=== PATIENT | male | born 1990 | race Caucasian/White ===

== ENCOUNTER 2021-09-23 17:43 | Emergency (ER) | payer OTHER ==
--- OUTSIDE RECORDS SUMMARY | 2021-09-23 17:48 | XMS REPORT | Continuity of Care Document ---
:1990 Author Organization Formerly [facility] t Address [address] [place] [address] Care Team Providers Name Role Phone UNKNOWN Primary Care Physician Unavailable COLLEEN Attending Clinician Unavailable Effie OCHOA Attending Clinician Unavailable Lyle DILLON Attending Clinician Unavailable COLLEEN Admitting Clinician Unavailable Effie OCHOA Admitting Clinician Unavailable Lyle DILLON Admitting Clinician Unavailable Problems This patient has no known problems. Allergies, Adverse Reactions, Alerts This patient has no known allergies or adverse reactions. Medications This patient has no known medications. Procedures This patient has no known procedures. Encounters Start End Encounter Admission Attending Care Care Encounter Source Date/Time Date/Time Type Type Clinicians Facility Department ID 2018-03-08 2018-03-08 Emergency [facility] [id number] [address] [place] 11:08:25 11:08:25 Health Results Test Description Test Time Test Comments Results Result Comments Source Valproic Acid (Depakote),S 2017-05-06 08:55:00 Test Item Value Reference Range Interpretation Comme nts Valproic Acid (test code = VALP) 89.2 ug/mL 50.0-100.0 N Valproic Acid (Depakote),[id number] 09:48:00 Test Item Value Reference Range Interpretation Comments Valproic Acid (test code = VALP) 41.9 ug/mL 50.0-100.0 L RPR, [id number] 13:48:00 Test Item Value Reference Range Interpretation Comments RPR (test code = RPR) Non-Reactive Non-Reactive N Thyroid Stimulating Hormone (TSH)2017-04-21 07:08:00 Test Item Value Reference Range Interpretation Comments TSH (test code = TSH) 0.94 mIU/mL 0.270-4.200 N Lipid [id number] 06:59:00 Test Item Value Reference Range Interpretation Comments Cholesterol (test 158 mg/dL 0-200 N code = CHOL) Triglycerides (test 120 mg/dL 9-200 N code = TRIG) HDL (test code = 35 mg/dL 40-60 L HDL) Chol/HDL (test code 4.5 Ratio 0.0-5.0 N = CHOLPHDL) LDL, Calculated 99 0-130 N (NOTE)RISK O F HEART (test code = LDLC) DISEASEPu blished by [place] Heart AssociationAnal yte Optim al Boderline Increased RiskC HOL <200 200-239 >240TRI G <150 150-199 >200HDL Male: >60 <40HDL Female: >60 <50 LDL < 100 130-15 9 >160 LDL NEAR OPTIMAL IS 100- 129 VLDL (test code = 24 mg/dL 5-40 N VLDL) LDL/HDL (test code = 3 LDLPHDL) RPR, [id number] 10:59:00 Test Item Value Reference Range Interpretation Comments RPR (test code = RPR) Non-Reactive Non-Reactive N Thyroid Stimulating Hormone (TSH)2017-04-05 09:10:00 Test Item Value Reference Range Interpretation Comments TSH (test code = TSH) 1.49 mIU/mL 0.270-4.200 N Lipid [id number] 09:02:00 Test Item Value Reference Range Interpretation Comments Cholesterol (test 205 mg/dL 0-200 H code = CHOL) Triglycerides (test 266 mg/dL 9-200 H code = TRIG) HDL (test code = 50 mg/dL 40-60 N HDL) Chol/HDL (test code 4.1 Ratio 0.0-5.0 N = CHOLPHDL) LDL, Calculated 102 0-130 N (NOTE)RISK O F HEART (test code = LDLC) DISEASEPu blished by [place] Heart AssociationAnal yte Optim al Boderline Increased RiskC HOL <200 200-239 >240TRI G <150 150-199 >200HDL Male: >60 <40HDL Female: >60 <50 LDL < 100 130-15 9 >160 LDL NEAR OPTIMAL IS 100- 129 VLDL (test code = 53 mg/dL 5-40 H VLDL) LDL/HDL (test code = 2 LDLPHDL) Comprehensive Metabolic [id number] 05:17:00 Test Item Value Reference Range Interpretation Comments Sodium (test code = 141 mmol/L 135-145 N NA) Potassium (test 3.6 mmol/L 3.5-5.1 N code = K) Chloride (test code 103 mmol/L 98-105 N = CL) Carbon Dioxide 29 mmol/L 22-29 N (test code = CO2) Glucose (test code 120 mg/dL 70-115 H = GLU) Blood Urea Nitrogen 14 mg/dL 6-20 N (test code = BUN) Creatinine (test 1.3 mg/dL 0.7-1.2 H code = CREAT) Calcium (test code 8.9 mg/dL 8.3-10.5 N = CA) Prot Total (test 6.1 g/dL 6.4-8.3 L code = TP) Albumin (test code 4.1 g/dL 3.5-5.2 N = ALB) A/G Ratio (test 2.1 Ratio code = AGRATIO) Globulin (test code 2.0 2.9-3.1 L = GLOB) Bili Total (test 0.2 mg/dL 0.1-0.9 N code = TBIL) Alk Phos (test code 79 U/L 40-129 N = APHOS) AST (test code = 29 U/L 1-40 N AST) ALT (test code = 46 U/L 1-41 H ALT) BUN/Creatinine 10.8 Ratio (test code = BCRATIO) Anion Gap (test 9 mmol/L 7-16 N code = AGAP) Estimated GFR (test >60 eGFR (es timated code = GFR) mL/min/1.73m2 Glomerular Uvaldo tration Rate) is an est imated value,calculate d from the patient's s dixon creatinine usin g the MDRD equation.I t is NOT the patient 's actual GFR. The eGFR provides a more clinicallyusefu l measure of kidn ey disease than se rum creatinine alone.This calculation philomena es sex and race into account, if the informationis provided. If th e race is not provided , and the patient isAfrican-Ameri can, multiply by 1.2 12. If sex is not prov ided, and thepatient is female, multipl y by 0.742. Results for patients <18 ye ars ofage have not been validated by th e MDRD study and concepción mnuoz be interpretedwith caution.eGFR Re sult Interpretation: eGFR > or = 60 is in t he Normal RangeeGF R < 60 may mean kidney diseaseeGFR < 1 5 may mean kidney failureRange s recommended by the National Kidney Foundation,http ://nkd ep.nih.gov [id number] 05:14:00 Test Item Value Reference Range Interpretation Comments Amphetamine (test POSITIVE Negative A For diagno stic code = AMPH) purposes only, positive result s should always b e assessedin conjunctionwith the patient's medic al history,clinica l examination and otherfindings.T o fulfill legal requirements, a more specific altern ate chemical method must be used inorder to obtain a Confirmed rasheeda lytical result. GC/MS i s the preferred confi rmatory method. Barbiturates (test Negative Negative N code = ISRA) Benzodiazepine (test Negative Negative N code = BELEN) Cocaine (test code = Negative Negative N COCA) Methadone (test code Negative Negative N = MTHD) Opiates (test code = Negative Negative N OPIA) PCP (test code = PCP) Negative Negative N Propoxyphene (test Negative Negative N code = PROPOX) THC (test code = THC) POSITIVE Negative A Alcohol, Urine (test <0.01 g/dL 0.00-0.01 N code = ETOHU) Urinalysis [id number] 05:06:00 Test Item Value Reference Range Interpretation Comments Color (test code = COLOR) Yellow Yellow,Straw,Pl N yellow Clarity (test code = Clear Clear N CLAR) Specific [place] (test 1.027 1.001-1.035 N code = SPGR) pH (test code = PH) 6.0 5.0-9.0 N Ketone (test code = KET) Negative mg/dL Negative N Glucose (test code = Negative mg/dL Negative N GLUCUR) Protein (test code = Negative mg/dL Negative N PROT) Bilirubin (test code = Negative mg/dL Negative N BILI) Occult Blood (test code = Negative Negative N UDOB) Urobilinogen (test code = 0.2 mg/dL 0.2-1.0 N UROB) Nitrite (test code = NIT) Negative Negative N Leuk Esterase (test code Negative Negative N = LEUK) Micros Exam (test code = Not indicated MEXAM) CBC with [id number] 05:05:00 Test Item Value Reference Range Interpretation Comments WBC (test code = WBC) 7.7 K/cumm 4.4-10.5 N RBC (test code = RBC) 4.79 M/cumm 4.10-5.70 N Hemoglobin (test code = HGB) 14.2 gm/dL 13.4-17.4 N Hematocrit (test code = HCT) 43.4 % 38.7-52.0 N MCV (test code = MCV) 90.6 fL 80-100 N MCH (test code = MCH) 29.6 pg 27.0-32.5 N MCHC (test code = MCHC) 32.6 g/dL 32.0-37.5 N RDW (test code = RDW) 13.7 % 11.5-14.5 N Platelet Count (test code = 325 K/cumm 140-440 N PLTCT) MPV (test code = MPV) 7.9 fL Diff Method (test code = DIFFM) Auto Neutrophil (test code = NEUT) 44.4 % 36-70 N Lymphocyte (test code = LYMPH) 42.4 % 12-44 N Monocyte (test code = MONO) 8.5 % 0-11 N Eosinophil (test code = EOS) 3.1 % 0-7 N Basophil (test code = BASO) 1.6 % 0-2 N Neutro Abs (test code = ANEUT) 3.4 K/cumm 1.6-7.4 N Lymph Abs (test code = ALYMPH) 3.3 K/cumm 0.5-4.6 N [place] Abs (test code = AMONO) 0.7 K/cumm 0.0-1.2 N Eos Abs (test code = AEOS) 0.23 K/cumm 0.00-0.74 N Baso Abs (test code = ABASO) 0.1 K/cumm 0.00-0.21 N [id number] 14:10:00 Test Item Value Reference Range Interpretation Comments Amphetamine (test code POSITIVE Negative A For d iagnostic purposes = AMPH) only, positive results should always b e assessedin conjunctionwith the patient's medic al history,clinica l examination and otherfindings.T o fulfill legal requirements, a more specific altern ate chemical method must be used inorder to obtain a Confirmed rasheeda lytical result. GC/MS i s the preferred confi rmatory method. Barbiturates (test Negative Negative N code = ISRA) Benzodiazepine (test Negative Negative N code = BELEN) Cocaine (test code = Negative Negative N COCA) Methadone (test code = Negative Negative N MTHD) Opiates (test code = Negative Negative N OPIA) PCP (test code = PCP) Negative Negative N Propoxyphene (test Negative Negative N code = PROPOX) THC (test code = THC) POSITIVE Negative A Alcohol/Ethanol, [id number] 13:57:00 Test Item Value Reference Range Interpretation Comments Alcohol, Ethyl <0.01 g/dL 0.00-0.01 N Intoxicated 0.080 (test code = ETOH) g/dL or m ore [id number] 13:57:00 Test Item Value Reference Range Interpretation Comments Salicylate (test code <0.3 mg/dL 0.3-10.0 L Cheryl nge in unit of = SALI) measurement for Salicylate ( fr om ug/mL to mg/dL ) [id number] 13:57:00 Test Item Value Reference Range Interpretation Comments Acetaminophen (test code = ACET) <15.0 ug/mL 15.0-30.0 L Comprehensive Metabolic [id number] 13:57:00 Test Item Value Reference Range Interpretation Comments Sodium (test code = 141 mmol/L 135-145 N NA) Potassium (test 3.3 mmol/L 3.5-5.1 L code = K) Chloride (test code 99 mmol/L 98-105 N = CL) Carbon Dioxide 28 mmol/L 22-29 N (test code = CO2) Glucose (test code 92 mg/dL 70-115 N = GLU) Blood Urea Nitrogen 14 mg/dL 6-20 N (test code = BUN) Creatinine (test 1.1 mg/dL 0.7-1.2 N code = CREAT) Calcium (test code 9.4 mg/dL 8.3-10.5 N = CA) Prot Total (test 7.2 g/dL 6.4-8.3 N code = TP) Albumin (test code 4.4 g/dL 3.5-5.2 N = ALB) A/G Ratio (test 1.6 Ratio code = AGRATIO) Globulin (test code 2.8 2.9-3.1 L = GLOB) Bili Total (test 0.2 mg/dL 0.1-0.9 N code = TBIL) Alk Phos (test code 86 U/L 40-129 N = APHOS) AST (test code = 29 U/L 1-40 N AST) ALT (test code = 45 U/L 1-41 H ALT) BUN/Creatinine 12.7 Ratio (test code = BCRATIO) Anion Gap (test 14 mmol/L 7-16 N code = AGAP) Estimated GFR (test >60 eGFR (es timated code = GFR) mL/min/1.73m2 Glomerular Uvaldo tration Rate) is an est imated value,calculate d from the patient's s dixon creatinine usin g the MDRD equation.I t is NOT the patient 's actual GFR. The eGFR provides a more clinicallyusefu l measure of kidn ey disease than se rum creatinine alone.This calculation philomena es sex and race into account, if the informationis provided. If th e race is not provided , and the patient isAfrican-Ameri can, multiply by 1.2 12. If sex is not prov ided, and thepatient is female, multipl y by 0.742. Results for patients <18 ye ars ofage have not been validated by th e MDRD study and shoul d be interpretedwith caution.eGFR Re sult Interpretation: eGFR > or = 60 is in t he Normal RangeeGF R < 60 may mean kidney diseaseeGFR < 1 5 may mean kidney failureRange s recommended by the National Kidney Foundation,http ://nkd ep.nih.gov CBC with [id number] 13:54:00 Test Item Value Reference Range Interpretation Comments WBC (test code = WBC) 9.5 K/cumm 4.4-10.5 N RBC (test code = RBC) 5.14 M/cumm 4.10-5.70 N Hemoglobin (test code = HGB) 15.3 gm/dL 13.4-17.4 N Hematocrit (test code = HCT) 46.3 % 38.7-52.0 N MCV (test code = MCV) 90.0 fL 80-100 N MCH (test code = MCH) 29.7 pg 27.0-32.5 N MCHC (test code = MCHC) 33.0 g/dL 32.0-37.5 N RDW (test code = RDW) 13.2 % 11.5-14.5 N Platelet Count (test code = 366 K/cumm 140-440 N PLTCT) MPV (test code = MPV) 7.3 fL Diff Method (test code = DIFFM) Auto Neutrophil (test code = NEUT) 69.1 % 36-70 N Lymphocyte (test code = LYMPH) 21.6 % 12-44 N Monocyte (test code = MONO) 7.3 % 0-11 N Eosinophil (test code = EOS) 1.0 % 0-7 N Basophil (test code = BASO) 1.0 % 0-2 N Neutro Abs (test code = ANEUT) 6.6 K/cumm 1.6-7.4 N Lymph Abs (test code = ALYMPH) 2.1 K/cumm 0.5-4.6 N [place] Abs (test code = AMONO) 0.7 K/cumm 0.0-1.2 N Eos Abs (test code = AEOS) 0.09 K/cumm 0.00-0.74 N Baso Abs (test code = ABASO) 0.1 K/cumm 0.00-0.21 N
--- NOTE | 2021-09-23 18:49 | ER ---
Nurse's Notes [facility] Name: Don Berg Jr Age: 31 yrs Sex: Male : 1990 Arrival Date: 09/23/2021 Time: 17:47 Bed 11 Private MD: Diagnosis: Gastroenteritis;Diverticulosis Presentation: 09/23 19:37 Chief complaint: Patient states: "I want a colon screening" he has diarrhea approx 20 bb times a day for the last 7 to 8 years with abdominal pain. Coronavirus screen: At this time, the client does not indicate any symptoms associated with coronavirus-19. Ebola Screen: No symptoms or risks identified at this time. Initial Sepsis Screen: Does the patient meet any 2 criteria? No. Patient's initial sepsis screen is negative. Does the patient have a suspected source of infection? No. Patient's initial sepsis screen is negative. Risk Assessment: Do you want to hurt yourself or someone else? Patient reports no desire to harm self or others. Onset of symptoms is unknown. 19:37 Method Of Arrival: Ambulatory bb 19:37 Acuity: TAMIKO 3 bb Triage Assessment: 19:39 General: Appears in no apparent distress. Behavior is calm, cooperative. Pain: bb Complains of pain in abdomen. Neuro: Level of Consciousness is awake, alert, obeys commands, Oriented to person, place, time, situation. Cardiovascular: Capillary refill < 3 seconds Patient's skin is warm and dry. Respiratory: Respiratory effort is even, unlabored, Respiratory pattern is regular. GI: Abdomen is round Reports lower abdominal pain, diarrhea. Derm: Skin is pink, warm \\T\\ dry. Musculoskeletal: Circulation, motion, and sensation intact. 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 - Social history:: Smoking status: Patient reports the use of cigarette tobacco products, Patient uses alcohol, occasionally. Patient/guardian denies using street drugs. Screenin:30 Abuse screen: Denies threats or abuse. Nutritional screening: No deficits noted. bb Tuberculosis screening: No symptoms or risk factors identified. Fall Risk None identified. Assessment: 21:30 Reassessment: No changes from previously documented assessment. Patient is alert, bb oriented x 3, equal unlabored respirations, skin warm/dry/pink. see triage asssessment. 22:05 Reassessment: Patient is alert, oriented x 3, equal unlabored respirations, skin bb warm/dry/pink. pt to CT scan via wheelchair accompanied by legal technician. 09/24 00:04 Reassessment: Patient is alert, oriented x 3, equal unlabored respirations, skin bb warm/dry/pink. pt verbalized understanding of and agrees to plan of care discharge instructions given pt ambulated with steady gait to exit Patient states feeling better. Vital Signs: 09/23 19:37 BP 136 / 97; Pulse 101; Resp 16 S; Temp 98.5(O); Pulse Ox 98% on R/A; Weight 52.16 kg bb (R); Height 4 ft. 11 in. (149.86 cm) (R); Pain 7/10; 09/24 00:04 BP 139 / 99; Pulse 83; Resp 16 S; Temp 97.6(O); Pulse Ox 98% on R/A; bb 09/23 19:37 Body Mass Index 23.23 (52.16 kg, 149.86 cm) ED Course: 09/23 17:47 Patient arrived in ED. ds1 19:39 Triage completed. bb 19:39 Arm band placed on Patient placed in an exam room, on a stretcher, on pulse oximetry. 19:57 Initial lab(s) drawn, by ia, sent to lab. Inserted saline lock: 22 gauge in right lt3 antecubital area, using aseptic technique. 19:57 Hepatic Function Sent. lt3 19:57 CBC with Diff Sent. lt3 19:57 Basic Metabolic Panel Sent. lt3 19:57 Lipase Sent. 3 21:19 Gus Villegas MD is Attending Physician. [facility] 21:30 Patient has correct armband on for positive identification. Call light in reach. bb 22:19 CT Abd/Pelvis - IV Contrast Only In Process Unspecified. EDCO 23:45 Daljit Thompson MD is Referral Physician. [facility] 23:56 Angelina Vines, RN is Primary Nurse. bb 09/24 00:05 No provider procedures requiring assistance completed. IV discontinued, intact, bb bleeding controlled, No redness/swelling at site. Pressure dressing applied. Administered Medications: 09/23 22:05 Drug: NS 0.9% 1000 ml Route: IV; Rate: 1000 ml; Site: right antecubital; bb 09/24 00:05 Follow up: IV Status: Completed infusion; IV Intake: 1000ml bb 09/23 22:05 Drug: Zofran (Ondansetron) 4 mg Route: IVP; Site: right antecubital; bb 09/24 00:06 Follow up: Response: No adverse reaction bb 09/23 22:07 Drug: morphine 4 mg {Note: RASS 0.} Route: IVP; Site: right antecubital; bb 09/24 00:06 Follow up: Response: No adverse reaction; Pain is decreased; RASS: Alert and Calm (0) bb 09/23 23:58 Drug: Cipro (ciprofloxacin) 500 mg Route: PO; bb 09/24 00:06 Follow up: Response: Medication administered at discharge. bb Intake: 00:05 IV: 1000ml; Total: 1000ml. bb Outcome: 09/23 18:49 Patient left the ED. 23:46 Discharge ordered by . va 09/24 00:05 Discharged to home ambulatory. bb Condition: stable Discharge instructions given to patient, Instructed on discharge instructions, follow up and referral plans. medication usage, Demonstrated understanding of instructions, follow-up care, medications, Prescriptions given X 4. 00:06 Patient left the ED. bb Signatures: Dispatcher [facility] Shruti Bojorquez ds1 Angelina Vines RN RN bb Williams, Irene, RN RN iw Holmes, Maurice, MD MD 7 Brenna Mary 3 Corrections: (The following items were deleted from the chart) 09/23 22:18 22:18 NS 0.9% 1000 ml IV at 1000 ml in right antecubital kris ponce
[2021-09-23 20:22] LABS: Absolute Lymphocytes (CBC) 2.8 K/uL (0.7-4.9); Hematocrit 45.2 % (39.6-49.0); MPV 7.9 fL (7.6-11.3); RBC Red Blood Cell Count 4.82 M/uL (4.33-5.43)
[2021-09-23 20:39] LABS: ALT/SGPT 57 U/L (12-78); AST/SGOT 19 U/L (15-37); Albumin 3.8 g/dL (3.4-5.0); Alkaline Phosphatase 95 U/L (45-117); BUN Blood Urea Nitrogen 21 mg/dL (7-18); Bicarbonate 25 mmol/L (21-32); Bilirubin Direct < 0.1 mg/dL (0-0.2); Bilirubin Total 0.2 mg/dL (0.2-1.0); Glucose Level 111 mg/dL (74-106); Lipase 95 U/L (73-393); Potassium 4.1 mmol/L (3.5-5.1); Protein, Total 7.7 g/dL (6.4-8.2); Sodium Level 137 mmol/L (136-145)
[2021-09-23] MEDS ORDERED: ONDANSETRON 4 MG/2 ML VIAL ONE (21:59)
[2021-09-23] MEDS ORDERED: MORPHINE 4 MG/ML SYR ONE (21:59)
[2021-09-23] MEDS ORDERED: NA CHLORIDE 0.9% 1,000 ML ONE (21:59)
[2021-09-23 22:09] LABS: Urine Blood Negative (Negative); Urine Glucose Negative (Negative); Urine Protein 1+ (Negative); Urine Specific Gravity 1.025 (1.005-1.030); Urine pH 5.5 (5.0-7.0)
--- NOTE | 2021-09-23 23:46 | EDPHYS ---
Physician Documentation [facility] Name: Don Berg Jr Age: 31 yrs Sex: Male : 1990 Arrival Date: 09/23/2021 Time: 17:47 Bed 11 Private MD: ED Physician Gus Villegas HPI: 09/23 21:41 This 31 yrs old Male presents to ER via Ambulatory with complaints of Abdominal Pain. mh7 21:41 The patient presents with abdominal pain in the lower abdomen. Onset: The mh7 symptoms/episode began/occurred 2 week(s) ago. The symptoms do not radiate. Associated signs and symptoms: Pertinent positives: diarrhea, nausea, Pertinent negatives: anorexia, blood in stools, chest pain, constipation, dysuria, fever, headache, hematuria, palpitations, shortness of breath, testicular pain, vomiting, vomiting blood. The symptoms are described as intermittent, vague, waxing/waning. Modifying factors: The symptoms are alleviated by nothing, the symptoms are aggravated by nothing. Severity of pain: At its worst the pain was moderate 4 day(s) ago, in the emergency department the pain has improved moderately. 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 - Social history:: Smoking status: Patient reports the use of cigarette tobacco products, Patient uses alcohol, occasionally. Patient/guardian denies using street drugs. ROS: 21:41 Constitutional: Negative for fever, chills, and weight loss, Eyes: Negative for injury, mh7 pain, redness, and discharge, ENT: Negative for injury, pain, and discharge, Neck: Negative for injury, pain, and swelling, Cardiovascular: Negative for chest pain, palpitations, and edema, Respiratory: Negative for shortness of breath, cough, wheezing, and pleuritic chest pain, Back: Negative for injury and pain, : Negative for injury, bleeding, discharge, and swelling, MS/Extremity: Negative for injury and deformity, Skin: Negative for injury, rash, and discoloration, Neuro: Negative for headache, weakness, numbness, tingling, and seizure, Psych: Negative for depression, anxiety, suicide ideation, homicidal ideation, and hallucinations, Allergy/Immunology: Negative for hives, rash, and allergies, Endocrine: Negative for neck swelling, polydipsia, polyuria, polyphagia, and marked weight changes, Hematologic/Lymphatic: Negative for swollen nodes, abnormal bleeding, and unusual bruising. Exam: 21:41 Constitutional: The patient appears in no acute distress, alert, awake, uncomfortable. mh7 21:41 Head/Face: Normocephalic, atraumatic. Eyes: Pupils equal round and reactive to light, mh7 extra-ocular motions intact. Lids and lashes normal. Conjunctiva and sclera are non-icteric and not injected. Cornea within normal limits. Periorbital areas with no swelling, redness, or edema. Neck: Trachea midline, no thyromegaly or masses palpated, and no cervical lymphadenopathy. Supple, full range of motion without nuchal rigidity, or vertebral point tenderness. No Meningismus. Chest/axilla: Normal chest wall appearance and motion. Nontender with no deformity. No lesions are appreciated. Cardiovascular: Regular rate and rhythm with a normal S1 and S2. No gallops, murmurs, or rubs. Normal PMI, no JVD. No pulse deficits. Respiratory: Lungs have equal breath sounds bilaterally, clear to auscultation and percussion. No rales, rhonchi or wheezes noted. No increased work of breathing, no retractions or nasal flaring. 21:41 Back: No spinal tenderness. No costovertebral tenderness. Full range of motion. Skin: Warm, dry with normal turgor. Normal color with no rashes, no lesions, and no evidence of cellulitis. MS/ Extremity: Pulses equal, no cyanosis. Neurovascular intact. Full, normal range of motion. Neuro: Awake and alert, GCS 15, oriented to person, place, time, and situation. Cranial nerves II-XII grossly intact. Motor strength 5/5 in all extremities. Sensory grossly intact. Cerebellar exam normal. Normal gait. Psych: Awake, alert, with orientation to person, place and time. Behavior, mood, and affect are within normal limits. 21:41 Abdomen/GI: Inspection: abdomen appears normal, Bowel sounds: normal, in all quadrants, Palpation: moderate abdominal tenderness, in the left lower quadrant, mass, is not appreciated, rebound tenderness, is not appreciated, voluntary guarding, is not appreciated, involuntary guarding, is not appreciated, no appreciated organomegaly, Rectal exam: the exam is deferred, because of patient request, Indicators: McBurney's point is not tender, Dyson's sign is negative, Rovsing's sign is negative, Obturator sign is negative, Psoas sign is negative, Liver: no appreciated palpable abnormalities, Hernia: not appreciated. Vital Signs: 19:37 BP 136 / 97; Pulse 101; Resp 16 S; Temp 98.5(O); Pulse Ox 98% on R/A; Weight 52.16 kg bb (R); Height 4 ft. 11 in. (149.86 cm) (R); Pain 04/01; 09/24 00:04 BP 139 / 99; Pulse 83; Resp 16 S; Temp 97.6(O); Pulse Ox 98% on R/A; bb 09/23 19:37 Body Mass Index 23.23 (52.16 kg, 149.86 cm) MDM: 09/23 23:43 Differential diagnosis: bowel obstruction, diverticulitis, gastritis, gastroesophageal mh7 reflux disease, Irritable bowel syndrome, non-specific abd pain, Peptic Ulcer Disease, Pyelonephritis, Ureterolithiasis, urinary tract infection. Data reviewed: vital signs, nurses notes, old medical records, lab test result(s), CBC, electrolytes, urinalysis, radiologic studies, CT scan. Data interpreted: Pulse oximetry: on room air is 98 %. Interpretation: normal. Counseling: I had a detailed discussion with the patient and/or guardian regarding: the historical points, exam findings, and any diagnostic results supporting the discharge/admit diagnosis, the presence of at least one elevated blood pressure reading (>120/80) during this emergency department visit, lab results, radiology results, the need for outpatient follow up, a machine lacer, to return to the emergency department if symptoms worsen or persist or if there are any questions or concerns that arise at home. Response to treatment: the patient's symptoms have resolved after treatment, the patient's blood pressure is in an acceptable range, mental status has returned to baseline, the patient no longer shows bradycardia, the patient is not short of breath, the patient is not tachycardic, the patient's pain is gone, the patient's temperature has normalized, patient is well hydrated. 23:46 Patient medically screened. [facility] 09/23 19:41 Order name: Basic Metabolic Panel 09/23 19:41 Order name: CBC with Diff 09/23 19:41 Order name: Hepatic Function 09/23 19:41 Order name: Lipase; Complete Time: 21:27 09/23 19:41 Order name: Basic Metabolic Panel; Complete Time: 21:27 EDAK 09/23 19:41 Order name: CBC with Automated Diff; Complete Time: 21:27 EDAK 09/23 19:41 Order name: IV Saline Lock; Complete Time: 19:57 09/23 19:41 Order name: Liver (Hepatic) Function; Complete Time: 21:27 EDAK 09/23 21:28 Order name: CT Abd/Pelvis - IV Contrast Only [facility] 09/23 22:08 Order name: Urine Dipstick-Ancillary; Complete Time: 23:28 [facility] 09/23 19:41 Order name: Labs collected and sent; Complete Time: 19:57 09/23 21:28 Order name: Urine Dipstick-Ancillary (obtain specimen); Complete Time: 22:09 [facility] Administered Medications: 22:05 Drug: NS 0.9% 1000 ml Route: IV; Rate: 1000 ml; Site: right antecubital; 09/24 00:05 Follow up: IV Status: Completed infusion; IV Intake: 1000ml 09/23 22:05 Drug: Zofran (Ondansetron) 4 mg Route: IVP; Site: right antecubital; 09/24 00:06 Follow up: Response: No adverse reaction 09/23 22:07 Drug: morphine 4 mg {Note: RASS 0.} Route: IVP; Site: right antecubital; 09/24 00:06 Follow up: Response: No adverse reaction; Pain is decreased; RASS: Alert and Calm (0) 09/23 23:58 Drug: Cipro (ciprofloxacin) 500 mg Route: PO; 09/24 00:06 Follow up: Response: Medication administered at discharge. Disposition Summary: 09/23/21 23:46 Discharge Ordered Location: Home [facility] Problem: an ongoing problem [facility] Symptoms: have improved [facility] Condition: Stable [facility] Diagnosis - Gastroenteritis [facility] - Diverticulosis [facility] Followup: [facility] - With: Private Physician - When: 1 - 2 days - Reason: Worsening of condition, Recheck today's complaints, Continuance of care, Re-evaluation by your physician Followup: [facility] - With: Daljit Thompson MD - When: 2 - 3 days - Reason: Worsening of condition, Recheck today's complaints Discharge Instructions: - Discharge Summary Sheet [facility] - High-Fiber Diet [facility] - Diverticulosis [facility] - Viral Gastroenteritis, Adult, Zitm-ir-Hucs [facility] Forms: - Medication Reconciliation Form [facility] - Thank You Letter [facility] - Antibiotic Education [facility] - Prescription Opioid Use [facility] Prescriptions: - ondansetron 4 mg Oral tablet,disintegrating - place 1 tablet by TRANSLINGUAL route every 8 hours As needed; 10 tablet; [facility] Refills: 0, Product Selection Permitted - Flagyl 500 mg Oral Tablet - take 1 tablet by ORAL route every 8 hours for 10 days; 30 tablet; Refills: 0, [facility] Product Selection Permitted - Cipro 500 mg Oral Tablet - take 1 tablet by ORAL route every 12 hours for 10 days; 20 tablet; Refills: 0, [facility] Product Selection Permitted - dicyclomine 20 mg Oral Tablet - take 1 tablet by ORAL route 4 times per day As needed; 20 tablet; Refills: 0, [facility] Product Selection Permitted Signatures: Dispatcher [employer] Angelina Lozano RN RN Cailin Pickard RN RN iw Holmes, Maurice, MD MD [facility] Corrections: (The following items were deleted from the chart) 09/23 18:54 18:49 Before Triage [facility] 18:54 18:49 wait time [facility]
[2021-09-24] MEDS ORDERED: CIPROFLOXACIN HCL 500 MG TAB ONE (00:01)
[2021-09-24 00:20] VITALS: O2SAT 98
[2021-09-24 00:21] VITALS: BP 139/99; TEMP 97.6
--- NOTE | 2021-09-24 20:03 | RAD REPORT ---
EXAM DESCRIPTION: CT - Abdomen Pelvis W Contrast - 09/24/2021 7:01 am CLINICAL HISTORY: 31-year-old male with diarrhea and abdominal pain. COMPARISON: None. TECHNIQUE: CT of the abdomen and pelvis was performed following intravenous administration of contra st. Oral contrast was not administered. Multiplanar reformatted images were provided. This exam was p erformed according to our departmental dose optimization program which includes use of automated expo sure control, adjustment of the mA and/or kV according to patient size and/or use of iterative recons truction technique. FINDINGS: Chest: Evaluation through the lung bases reveals no focal opacity, pleural effusion or pne umothorax. Heart size is within normal limits. No pericardial effusion. Abdomen and pelvis: The liver, gallbladder, pancreas, spleen, bilateral kidneys and bilateral adrenal glands are within normal limits. The vessels are patent and normal in caliber. Retroaortic LEFT renal vein. No abdominopelvic lymph nodes are noted to be pathologically enlarged by CT measurement criteria. The large bowel is situated within the LEFT hemiabdomen with the cecum and appendix crossing midline, terminating at the level of the RIGHT lower quadrant. The small bowel is situated within the RIGHT h emiabdomen. The duodenum does not cross the midline, and the SMA SMV are reversed compatible with mal rotation. There is diffuse bowel wall thickening of the duodenum and proximal small bowel and fluid-filled dist ention of distal small bowel without clear findings to suggest obstructive process. Unformed stool present throughout the large and small bowel compatible with liquid fecal content/diar karina, raising the question of enteritis. There is diffuse fatty infiltration of the submucosa throughout the colon raising the possibility of sequela of inflammatory bowel disease. Diverticular disease without findings to suggest diverticulitis. Thickened appearance of the bladder wall may be secondary to incomplete distention, however can be se en in the setting of infectious or inflammatory process. Please correlate with laboratory values. No free air. No free abdominopelvic fluid collections. The appendix is within normal limits. The osseous structures are within normal limits. Fat-containing RIGHT inguinal hernia. IMPRESSION: 1. Diffuse bowel wall thickening of the duodenum and proximal small bowel and fluid-fi lled distention of distal small bowel without clear findings to suggest obstructive process. Unformed stool present throughout the large and small bowel compatible with liquid fecal content/diarrhea, ra ising the question of enteritis. 2. Diverticular disease without findings to suggest diverticulitis. 3. Diffuse fatty infiltration of the submucosa throughout the colon raising the possibility of sequ helen of inflammatory bowel disease. 4. Thickened appearance of the bladder wall may be secondary to incomplete distention, however can be seen in the setting of infectious or inflammatory process. Please correlate with laboratory values . Electronically signed by: Kasie Pitt MD 09/23/2021 11:17 PM [employer] Due to temporary technical issues with the PACS/Fluency reporting system, reports are being signed by the in house radiologists without review as a courtesy to insure prompt reporting. The interpreting radiologist is fully responsible for the content of the report.
== END 2021-09-24 00:06 | disposition home or self-care (01) ==
LOC: ER 17:43
DX: K52.9 Noninfective gastroenteritis and colitis, unspecified (principal); K57.90 Diverticulosis of intestine, part unspecified, without perforation or abscess without bleeding; Z88.2 Allergy status to sulfonamides
CPT/HCPCS: 96361; 85025; 80048; 36415; 80076; 81003; 83690; 74177; 96375; 96374; 99284; Q9967; J7030; J2405

== ENCOUNTER 2022-01-25 14:08 | Emergency (ER) | payer OTHER ==
--- OUTSIDE RECORDS SUMMARY | 2022-01-25 14:11 | XMS REPORT | Continuity of Care Document ---
:1990 Author Organization [facility] t Address [address] [place] [address] Care Team Providers Name Role Phone UNKNOWN [...] Clinicians Facility Department ID 2018-03-08 2018-03-08 Emergency [facility] [id number] [address] [place] 11:08:25 11:08:25 Health Results Test Description Test Time Test Comments Results Result Comments Source Valproic Acid (Depakote),S 2017-05-06 08:55:00 Test Item Value Reference Range Interpretation Comme nts Valproic Acid (test code = VALP) 89.2 ug/mL 50.0-100.0 N Valproic Acid (Depakote),[id number] 09:48:00 Test Item Value Reference Range Interpretation Comments Valproic Acid (test code = VALP) 41.9 ug/mL 50.0-100.0 L RPR, [id number] 13:48:00 Test Item Value Reference Range Interpretation Comments RPR (test code = RPR) Non-Reactive Non-Reactive N Thyroid Stimulating Hormone (TSH)2017-04-21 07:08:00 Test Item Value Reference Range Interpretation Comments TSH (test code = TSH) 0.94 mIU/mL 0.270-4.200 N Lipid [id number] 06:59:00 Test Item Value Reference Range Interpretation Comments Cholesterol (test 158 mg/dL 0-200 N code = CHOL) Triglycerides (test 120 mg/dL 9-200 N code = TRIG) HDL (test code = 35 mg/dL 40-60 L HDL) Chol/HDL (test code 4.5 Ratio 0.0-5.0 N = CHOLPHDL) LDL, Calculated 99 0-130 N (NOTE)RISK O F HEART (test code = LDLC) DISEASEPu blished by [place] Heart AssociationAnal yte Optim al Boderline Increased RiskC HOL <200 200-239 >240TRI G <150 150-199 >200HDL Male: >60 <40HDL Female: >60 <50 LDL < 100 130-15 9 >160 LDL NEAR OPTIMAL IS 100- 129 VLDL (test code = 24 mg/dL 5-40 N VLDL) LDL/HDL (test code = 3 LDLPHDL) RPR, [id number] 10:59:00 Test Item Value Reference Range Interpretation Comments RPR (test code = RPR) Non-Reactive Non-Reactive N Thyroid Stimulating Hormone (TSH)2017-04-05 09:10:00 Test Item Value Reference Range Interpretation Comments TSH (test code = TSH) 1.49 mIU/mL 0.270-4.200 N Lipid [id number] 09:02:00 Test Item Value Reference Range Interpretation Comments Cholesterol (test 205 mg/dL 0-200 H code = CHOL) Triglycerides (test 266 mg/dL 9-200 H code = TRIG) HDL (test code = 50 mg/dL 40-60 N HDL) Chol/HDL (test code 4.1 Ratio 0.0-5.0 N = CHOLPHDL) LDL, Calculated 102 0-130 N (NOTE)RISK O F HEART (test code = LDLC) DISEASEPu blished by [place] Heart AssociationAnal yte Optim al Boderline Increased RiskC HOL <200 200-239 >240TRI G <150 150-199 >200HDL Male: >60 <40HDL Female: >60 <50 LDL < 100 130-15 9 >160 LDL NEAR OPTIMAL IS 100- 129 VLDL (test code = 53 mg/dL 5-40 H VLDL) LDL/HDL (test code = 2 LDLPHDL) Comprehensive Metabolic [id number] 05:17:00 Test Item Value Reference Range Interpretation [...] by th e MDRD study and concepción munoz be interpretedwith caution.eGFR Re sult Interpretation: eGFR > or = 60 is in t he Normal RangeeGF R < 60 may mean kidney diseaseeGFR < 1 5 may mean kidney failureRange s recommended by the National Kidney Foundation,http ://nkd ep.nih.gov [id number] 05:14:00 Test Item Value Reference Range Interpretation [...] g/dL 0.00-0.01 N code = ETOHU) Urinalysis [id number] 05:06:00 Test Item Value Reference Range Interpretation Comments Color (test code = COLOR) Yellow Yellow,Straw,Pl N yellow Clarity (test code = Clear Clear N CLAR) Specific [place] (test 1.027 1.001-1.035 N code = SPGR) [...] code = Not indicated MEXAM) CBC with [id number] 05:05:00 Test Item Value Reference Range Interpretation [...] code = ALYMPH) 3.3 K/cumm 0.5-4.6 N [place] Abs (test code = AMONO) 0.7 K/cumm 0.0-1.2 N Eos Abs (test code = AEOS) 0.23 K/cumm 0.00-0.74 N Baso Abs (test code = ABASO) 0.1 K/cumm 0.00-0.21 N [id number] 14:10:00 Test Item Value Reference Range Interpretation [...] code = THC) POSITIVE Negative A Alcohol/Ethanol, [id number] 13:57:00 Test Item Value Reference Range Interpretation Comments Alcohol, Ethyl <0.01 g/dL 0.00-0.01 N Intoxicated 0.080 (test code = ETOH) g/dL or m ore [id number] 13:57:00 Test Item Value Reference Range Interpretation Comments Salicylate (test code <0.3 mg/dL 0.3-10.0 L Cheryl nge in unit of = SALI) measurement for Salicylate ( fr om ug/mL to mg/dL ) [id number] 13:57:00 Test Item Value Reference Range Interpretation Comments Acetaminophen (test code = ACET) <15.0 ug/mL 15.0-30.0 L Comprehensive Metabolic [id number] 13:57:00 Test Item Value Reference Range Interpretation [...] National Kidney Foundation,http ://nkd ep.nih.gov CBC with [id number] 13:54:00 Test Item Value Reference Range Interpretation [...] code = ALYMPH) 2.1 K/cumm 0.5-4.6 N [place] Abs (test code = AMONO) 0.7 K/cumm 0.0-1.2 N Eos Abs (test code = AEOS) 0.09 K/cumm 0.00-0.74 N Baso Abs (test code = ABASO) 0.1 K/cumm 0.00-0.21 N
[2022-01-25] MEDS ORDERED: IBUPROFEN 200 MG TAB PO ONE (14:50)
[2022-01-25] MEDS ORDERED: LIDOCAINE VISCOUS 2% SOLN 15 ML UDC ONE (14:50)
--- NOTE | 2022-01-25 15:38 | ER ---
Nurse's Notes [facility] Name: Don Berg Jr Age: 31 yrs Sex: Male : 1990 Arrival Date: 01/25/2022 Time: 14:09 Bed 12 Private MD: Diagnosis: Cutaneous abscess of head [any part, except face]-right hoahaoism Presentation: 01/25 14:14 Chief complaint: Patient states: has a spot on right side of forehead, started as a iw pimple and it got bigger. Coronavirus screen: At this time, the client does not indicate any symptoms associated with coronavirus-19. Ebola Screen: Patient negative for fever greater than or equal to 101.5 degrees Fahrenheit, and additional compatible Ebola Virus Disease symptoms Patient denies exposure to infectious person. Patient denies travel to an Ebola-affected area in the 21 days before illness onset. No symptoms or risks identified at this time. Initial Sepsis Screen: Does the patient meet any 2 criteria? No. Patient's initial sepsis screen is negative. Does the patient have a suspected source of infection? No. Patient's initial sepsis screen is negative. Risk Assessment: Do you want to hurt yourself or someone else? Patient reports no desire to harm self or others. Onset of symptoms was January 22, 2022. 14:14 Method Of Arrival: Ambulatory iw 14:14 Acuity: TAMIKO 4 iw Historical: - Allergies: 14:15 Sulfa (Sulfonamide Antibiotics); iw - Home Meds: 14:15 None [Active]; iw - PMHx: 14:15 Bipolar disorder; tiffanie-silver syndrome; iw - PSHx: 14:15 None; iw - Immunization history:: Client reports having NOT received the Covid vaccine. - Social history:: Smoking status: Patient reports the use of cigarette tobacco products, smokes one pack cigarettes per day. Screenin:31 Abuse screen: Denies threats or abuse. Denies injuries from another. Nutritional iw screening: No deficits noted. Tuberculosis screening: No symptoms or risk factors identified. Fall Risk None identified. Assessment: 14:30 General: Appears in no apparent distress. Behavior is calm, cooperative. Pain: iw Complains of pain in right hoahaoism. Neuro: Level of Consciousness is awake, alert, obeys commands. Cardiovascular: Patient's skin is warm and dry. Derm: Abscess located on right hoahaoism is dime sized, is raised. Musculoskeletal: Range of motion: intact in all extremities. Vital Signs: 14:14 BP 145 / 97; Pulse 110; Resp 16; Temp 98.4; Pulse Ox 98% on R/A; Weight 49.9 kg; Height iw 4 ft. 11 in. (149.86 cm); Pain 7/10; 14:14 Body Mass Index 22.22 (49.90 kg, 149.86 cm) iw ED Course: 14:09 Patient arrived in ED. am2 14:12 Bc Bonner PA is PHCP. cp 14:12 Bc Gracia MD is Attending Physician. cp 14:15 Triage completed. iw 14:16 Arm band placed on. iw 14:37 Cailin Carvalho RN is Primary Nurse. iw Administered Medications: 14:56 Drug: Ibuprofen 600 mg Route: PO; iw 14:56 Drug: Viscous Lidocaine Liquid (4 %) 5 ml Route: Mucous Membrane; iw 15:52 Drug: Doxycycline 100 mg Route: PO; iw Outcome: 15:38 Discharge ordered by . cp 15:53 Patient left the ED. iw Signatures: Cailin Carvalho RN RN iw Bc Bonner PA PA Karin Interiano am2
--- NOTE | 2022-01-25 15:39 | EDPHYS ---
Physician Documentation [facility] Name: Don Berg Jr Age: 31 yrs Sex: Male : 1990 Arrival Date: 01/25/2022 Time: 14:09 Bed 12 Private MD: TRU Physician Bc Gracia HPI: 01/25 14:45 This 31 yrs old Male presents to ER via Ambulatory with complaints of Skin Problem - cp right side of face. 14:45 The patient presents with an abscess of the right presybeterian. cp 14:45 Onset: The symptoms/episode began/occurred 3 day(s) ago. cp 14:45 Possible cause(s): acne. Associated signs and symptoms: Pertinent positives: discharge, cp headache, swelling. Historical: - Allergies: 14:15 Sulfa (Sulfonamide Antibiotics); iw - Home Meds: 14:15 None [Active]; iw - PMHx: 14:15 Bipolar disorder; tiffanie-silver syndrome; iw - PSHx: 14:15 None; iw - Immunization history:: Client reports having NOT received the Covid vaccine. - Social history:: Smoking status: Patient reports the use of cigarette tobacco products, smokes one pack cigarettes per day. ROS: 14:50 Constitutional: Negative for body aches, chills, fever, poor PO intake. cp 14:50 Eyes: Negative for injury, pain, redness, and discharge. cp 14:50 Respiratory: Negative for cough, shortness of breath. 14:50 Abdomen/GI: Negative for abdominal pain, nausea, vomiting, and diarrhea. 14:50 Skin: Positive for abscess, of the right presybeterian. 14:50 Neuro: Positive for headache. 14:50 All other systems are negative. Exam: 14:55 Constitutional: The patient appears in no acute distress, alert, awake, non-toxic, well cp developed, well nourished. 14:55 Head/face: Noted is erythema, that is mild, of the right presybeterian, swelling, that is cp mild, of the right presybeterian, tenderness, that is moderate, of the right presybeterian. 14:55 Eyes: Periorbital structures: appear normal, Conjunctiva: normal, no exudate, no injection, Lids and lashes: appear normal, bilaterally. 14:55 ENT: External ear(s): are unremarkable, Nose: is normal, Mouth: Lips: moist, Oral mucosa: moist, Posterior pharynx: Airway: no evidence of obstruction, patent. 14:55 Neck: ROM/movement: is normal, is supple, without pain, no range of motions limitations, Lymph nodes: no appreciated lymphadenopathy. 14:55 Chest/axilla: Inspection: normal. 14:55 Cardiovascular: Rate: tachycardic. 14:55 Respiratory: the patient does not display signs of respiratory distress, Respirations: normal. Vital Signs: 14:14 BP 145 / 97; Pulse 110; Resp 16; Temp 98.4; Pulse Ox 98% on R/A; Weight 49.9 kg; Height iw 4 ft. 11 in. (149.86 cm); Pain 7/10; 14:14 Body Mass Index 22.22 (49.90 kg, 149.86 cm) iw MDM: 14:20 Patient medically screened. andrew 15:00 Differential diagnosis: abscess, cellulitis, insect bite. cp 15:38 Data reviewed: vital signs, nurses notes. cp 15:38 Counseling: I had a detailed discussion with the patient and/or guardian regarding: the cp historical points, exam findings, and any diagnostic results supporting the discharge/admit diagnosis, to return to the emergency department if symptoms worsen or persist or if there are any questions or concerns that arise at home. 15:38 Response to treatment: the patient's symptoms have mildly improved after treatment, and cp as a result, I will discharge patient. Administered Medications: 14:56 Drug: Ibuprofen 600 mg Route: PO; iw 14:56 Drug: Viscous Lidocaine Liquid (4 %) 5 ml Route: Mucous Membrane; iw 15:52 Drug: Doxycycline 100 mg Route: PO; iw Disposition Summary: 01/25/22 15:38 Discharge Ordered Location: Home cp Problem: new cp Symptoms: have improved cp Condition: Stable cp Diagnosis - Cutaneous abscess of head [any part, except face] - right presybeterian cp Followup: cp - With: Private Physician - When: 1 - 2 days - Reason: Worsening of condition Discharge Instructions: - Discharge Summary Sheet cp - Skin Abscess cp Forms: - Medication Reconciliation Form cp - Thank You Letter cp - Antibiotic Education cp - Prescription Opioid Use cp Prescriptions: - Ibuprofen 600 mg Oral Tablet - take 1 tablet by ORAL route every 8 hours As needed take with food; 30 tablet; cp Refills: 0, Product Selection Permitted - Doxycycline Hyclate 100 mg Oral Tablet - take 1 tablet by ORAL route every 12 hours; 20 tablet; Refills: 0, Product cp Selection Permitted Signatures: Bc Gracia MD MD cha Williams, Irene, RN RN iw Bc Bonner PA PA cp
[2022-01-25] MEDS ORDERED: DOXYCYCLINE 100 MG CAP PO ONE (15:52)
[2022-01-25 16:21] VITALS: BP 145/97; TEMP 98.4; O2SAT 98
== END 2022-01-25 15:53 | disposition home or self-care (01) ==
LOC: ER 14:08
DX: L02.811 Cutaneous abscess of head [any part, except face] (principal); R51.9 Headache, unspecified; F17.210 Nicotine dependence, cigarettes, uncomplicated; F31.9 Bipolar disorder, unspecified; Z88.2 Allergy status to sulfonamides
CPT/HCPCS: 99282

== ENCOUNTER 2022-05-30 18:31 | Emergency (ER) | payer OTHER ==
--- OUTSIDE RECORDS SUMMARY | 2022-05-30 18:34 | XMS REPORT | Continuity of Care Document ---
:1990 Author Organization [facility] t Address [address] [place] [address] Care Team Providers Name Role Phone UNKNOWN, REFFERING Primary Care Physician Unavailable TANI MACIAS Attending Clinician Unavailable ASAD OCHOA Attending Clinician Unavailable NURY DILLON Attending Clinician Unavailable TANI MACIAS Admitting Clinician Unavailable ASAD OCHOA Admitting Clinician Unavailable NURY DILLON Admitting Clinician Unavailable Problems This patient has no known problems. Allergies, Adverse Reactions, Alerts This patient has no known allergies or adverse reactions. Medications This patient has no known medications. Procedures This patient has no known procedures. Encounters Start End Encounter Admission Attending Care Care Encounter Source Date/Time Date/Time Type Type Clinicians Facility Department ID 2018-03-08 2018-03-08 Emergency [facility] [id number] 1 [place] 11:08:25 11:08:25 Health Results Test Description Test Time Test Comments Results Result Comments Source Valproic Acid (Depakote),S 2017-05-06 08:55:00 Test Item Value Reference Range Interpretation Comme nts Valproic Acid (test code = VALP) 89.2 ug/mL 50.0-100.0 N Valproic Acid (Depakote),[id number] 09:48:00 Test Item Value Reference Range Interpretation Comments Valproic Acid (test code = VALP) 41.9 ug/mL 50.0-100.0 L RPR, [id number] 13:48:00 Test Item Value Reference Range Interpretation Comments RPR (test code = RPR) Non-Reactive Non-Reactive N Thyroid Stimulating Hormone (TSH)2017-04-21 07:08:00 Test Item Value Reference Range Interpretation Comments TSH (test code = TSH) 0.94 mIU/mL 0.270-4.200 N Lipid [id number] 06:59:00 Test Item Value Reference Range Interpretation Comments Cholesterol (test 158 mg/dL 0-200 N code = CHOL) Triglycerides (test 120 mg/dL 9-200 N code = TRIG) HDL (test code = 35 mg/dL 40-60 L HDL) Chol/HDL (test code 4.5 Ratio 0.0-5.0 N = CHOLPHDL) LDL, Calculated 99 0-130 N (NOTE)RISK O F HEART (test code = LDLC) DISEASEPu blished by [place] Heart AssociationAnal yte Optimal Boderli ne Increased RiskC HOL <200 200-239 >240TR IG <150 150-199 >200HDL Male: >60 <40HDL Fema le: >60 <50LDL <100 130 -159 >160LDL NEAR OP TIMAL IS 100-129 VLDL (test code = 24 mg/dL 5-40 N VLDL) LDL/HDL (test code = 3 LDLPHDL) RPR, [id number] 10:59:00 Test Item Value Reference Range Interpretation Comments RPR (test code = RPR) Non-Reactive Non-Reactive N Thyroid Stimulating Hormone (TSH)2017-04-05 09:10:00 Test Item Value Reference Range Interpretation Comments TSH (test code = TSH) 1.49 mIU/mL 0.270-4.200 N Lipid [id number] 09:02:00 Test Item Value Reference Range Interpretation Comments Cholesterol (test 205 mg/dL 0-200 H code = CHOL) Triglycerides (test 266 mg/dL 9-200 H code = TRIG) HDL (test code = 50 mg/dL 40-60 N HDL) Chol/HDL (test code 4.1 Ratio 0.0-5.0 N = CHOLPHDL) LDL, Calculated 102 0-130 N (NOTE)RISK O F HEART (test code = LDLC) DISEASEPu blished by [place] Heart AssociationAnal yte Optimal Boderli ne Increased RiskC HOL <200 200-239 >240TR IG <150 150-199 >200HDL Male: >60 <40HDL Fema le: >60 <50LDL <100 130 -159 >160LDL NEAR OP TIMAL IS 100-129 VLDL (test code = 53 mg/dL 5-40 H VLDL) LDL/HDL (test code = 2 LDLPHDL) Comprehensive Metabolic [id number] 05:17:00 Test Item Value Reference Range Interpretation [...] by the National Kidney Foundation,http ://nkd ep.nih.gov [id number] 05:14:00 Test Item Value Reference Range Interpretation [...] g/dL 0.00-0.01 N code = ETOHU) Urinalysis [id number] 05:06:00 Test Item Value Reference Range Interpretation Comments Color (test code = COLOR) Yellow Yellow,Straw,Pl N yellow Clarity (test code = Clear Clear N CLAR) Specific [place] (test 1.027 1.001-1.035 N code = SPGR) [...] code = Not indicated MEXAM) CBC with [id number] 05:05:00 Test Item Value Reference Range Interpretation [...] code = ALYMPH) 3.3 K/cumm 0.5-4.6 N [place] Abs (test code = AMONO) 0.7 K/cumm 0.0-1.2 N Eos Abs (test code = AEOS) 0.23 K/cumm 0.00-0.74 N Baso Abs (test code = ABASO) 0.1 K/cumm 0.00-0.21 N [id number] 14:10:00 Test Item Value Reference Range Interpretation [...] code = THC) POSITIVE Negative A Alcohol/Ethanol, [id number] 13:57:00 Test Item Value Reference Range Interpretation Comments Alcohol, Ethyl <0.01 g/dL 0.00-0.01 N Intoxicated 0 .080 g/dL (test code = ETOH) or more [id number] 13:57:00 Test Item Value Reference Range Interpretation Comments Salicylate (test code <0.3 mg/dL 0.3-10.0 L Cheryl nge in unit of = SALI) measurement for Salicylate ( fr om ug/mL to mg/dL ) [id number] 13:57:00 Test Item Value Reference Range Interpretation Comments Acetaminophen (test code = ACET) <15.0 ug/mL 15.0-30.0 L Comprehensive Metabolic [id number] 13:57:00 Test Item Value Reference Range Interpretation [...] National Kidney Foundation,http ://nkd ep.nih.gov CBC with [id number] 13:54:00 Test Item Value Reference Range Interpretation [...] code = ALYMPH) 2.1 K/cumm 0.5-4.6 N [place] Abs (test code = AMONO) 0.7 K/cumm 0.0-1.2 N Eos Abs (test code = AEOS) 0.09 K/cumm 0.00-0.74 N Baso Abs (test code = ABASO) 0.1 K/cumm 0.00-0.21 N
[2022-05-30] MEDS ORDERED: CEPHALEXIN 250 MG CAP ONE (19:57)
[2022-05-30] MEDS ORDERED: DOXYCYCLINE 100 MG CAP PO ONE (19:57)
--- NOTE | 2022-05-30 20:13 | EDPHYS ---
Physician Documentation [facility] Name: Don Berg Jr Age: 32 yrs Sex: Male : 1990 Arrival Date: 05/30/2022 Time: 18:35 Bed 18 Private MD: ED Physician Kasi Alcala HPI: 05/30 19:20 This 32 yrs old Male presents to ER via Unassigned with complaints of Abscess. jmm 19:20 the patient presents with a swollen area of the left leg. Onset: The symptoms/episode jmm began/occurred gradually. Possible cause(s): unknown. Associated signs and symptoms: Pertinent positives: swelling, Pertinent negatives: fever. Modifying factors: the symptoms are alleviated by nothing, the symptoms are aggravated by movement, walking, pressure. The patient has experienced similar episodes in the past. Historical: - Allergies: 19:58 Sulfa (Sulfonamide Antibiotics); ha1 - Immunization history:: Adult Immunizations up to date, Client reports having NOT received the Covid vaccine. Last tetanus immunization: up to date. - Social history:: Smoking status: Patient reports the use of cigarette tobacco products, smokes one pack cigarettes per day. ROS: 19:20 Constitutional: Negative for fever, chills, and weight loss, Cardiovascular: Negative jmm for chest pain, palpitations, and edema, Respiratory: Negative for shortness of breath, cough, wheezing, and pleuritic chest pain. 19:20 Skin: Positive for erythema, swelling. 19:20 All other systems are negative. Exam: 19:20 Constitutional: This is a well developed, well nourished patient who is awake, alert, jmm and in no acute distress. Head/Face: atraumatic. Eyes: EOMI, no conjunctival erythema appreciated ENT: Moist Mucus Membranes Neck: Trachea midline, Supple Chest/axilla: Normal chest wall appearance and motion. Cardiovascular: Regular rate and rhythm. No edema appreciated Respiratory: Normal respirations, no respiratory distress appreciated Abdomen/GI: Non distended Back: Normal ROM 19:20 Skin: Appearance: non fluctuant abscess noted to the left lower extremity, no purulent drainage appreciated. 19:20 Neuro: Orientation: is normal, Mentation: is normal, Memory: is normal. 19:20 Psych: Behavior/mood is pleasant, cooperative. Vital Signs: 19:41 BP 116 / 69; Pulse 70; Resp 16 S; Temp 99.2(O); Pulse Ox 97% on R/A; Weight 54.43 kg; ha1 Height 4 ft. 11 in. (149.86 cm); Pain 8/10; 20:04 BP 116 / 69; Pulse 70; Resp 16 S; Pulse Ox 97% on R/A; ha1 19:41 Body Mass Index 24.24 (54.43 kg, 149.86 cm) ha1 MDM: 19:[address] [facility] 19:21 Data reviewed: vital signs, nurses notes. [facility] 20:10 Counseling: I had a detailed discussion with the patient and/or guardian regarding: the [facility] historical points, exam findings, and any diagnostic results supporting the discharge/admit diagnosis, the need for outpatient follow up, to return to the emergency department if symptoms worsen or persist or if there are any questions or concerns that arise at home. ED course: Patient is alert and non toxic in appearance in the ED. Patient advised to follow up with pcp and otherwise given strict return precautions. Patient understood and agrees with the plan of care. . Administered Medications: 20:07 Drug: Doxycycline 100 mg Route: PO; ha1 20:30 Follow up: Response: No adverse reaction ha1 20:07 Drug: Cephalexin 500 mg Route: PO; ha1 20:30 Follow up: Response: No adverse reaction ha1 Disposition: 05/31 00:14 Co-signature as Attending Physician, Kasi Alcala MD. rn Disposition Summary: 05/30/22 20:12 Discharge Ordered Location: Home [facility] Condition: Stable [facility] Diagnosis - Cutaneous abscess of the lower leg [facility] Followup: [facility] - With: Private Physician - When: 2 - 3 days - Reason: Recheck today's complaints, Continuance of care, Re-evaluation by your physician Discharge Instructions: - Discharge Summary Sheet [facility] - Skin Abscess [facility] Forms: - Medication Reconciliation Form [facility] - Thank You Letter [facility] - Antibiotic Education [facility] - Prescription Opioid Use [facility] Prescriptions: - Augmentin 875-125 mg Oral Tablet - take 1 tablet by ORAL route every 12 hours for 10 days; 20 tablet; Refills: 0, [facility] Product Selection Permitted - Doxycycline Hyclate 100 mg Oral Tablet - take 1 tablet by ORAL route every 12 hours; 20 tablet; Refills: 0, Product [facility] Selection Permitted Signatures: Rl Schultz PA PA jmm Nieto, Roman, MD MD rn Cornelia Ware RN RN ha1
--- NOTE | 2022-05-30 20:13 | ER ---
Nurse's Notes [facility] Name: Don Berg Jr Age: 32 yrs Sex: Male : 1990 Arrival Date: 05/30/2022 Time: 18:35 Bed 18 Private MD: Diagnosis: Cutaneous abscess of the lower leg Presentation: 05/30 19:41 Chief complaint: Patient states: I have a swollen abscess on my left leg. Coronavirus ha1 screen: Client denies travel out of the [place] in the last 14 days. Ebola Screen: No symptoms or risks identified at this time. Initial Sepsis Screen: Does the patient meet any 2 criteria? No. Patient's initial sepsis screen is negative. Does the patient have a suspected source of infection? Yes: Skin breakdown/wound. Risk Assessment: Do you want to hurt yourself or someone else? Patient reports no desire to harm self or others. Onset of symptoms was May 28, 2022. 19:41 Method Of Arrival: Ambulatory ha1 19:41 Acuity: TAMIKO 3 ha1 Triage Assessment: 19:58 General: Appears in no apparent distress. Behavior is calm, cooperative. Pain: ha1 Complains of pain in medial aspect of left calf Pain does not radiate. Pain at worst was 10 out of 10 on a pain scale. Quality of pain is described as pressure, Pain began 2-3 days ago. Alleviated by medications. Neuro: Level of Consciousness is awake, alert, obeys commands, Oriented to person, place, time, situation, Gait is steady, Speech is normal. Respiratory: Airway is patent Trachea midline Respiratory effort is even, unlabored, Respiratory pattern is regular, symmetrical. GI: No signs and/or symptoms were reported involving the gastrointestinal system. : No signs and/or symptoms were reported regarding the genitourinary system. Derm: Wound noted medial aspect of left calf. Derm: Abscess located on medial aspect of left calf. Musculoskeletal: Range of motion: intact in all extremities. Historical: - Allergies: 19:58 Sulfa (Sulfonamide Antibiotics); ha1 - Immunization history:: Adult Immunizations up to date, Client reports having NOT received the Covid vaccine. Last tetanus immunization: up to date. - Social history:: Smoking status: Patient reports the use of cigarette tobacco products, smokes one pack cigarettes per day. Screenin:06 Abuse screen: Denies threats or abuse. Denies injuries from another. Nutritional ha1 screening: No deficits noted. Tuberculosis screening: No symptoms or risk factors identified. Fall Risk None identified. Assessment: 20:05 General: see triage. ha1 Vital Signs: 19:41 BP 116 / 69; Pulse 70; Resp 16 S; Temp 99.2(O); Pulse Ox 97% on R/A; Weight 54.43 kg; ha1 Height 4 ft. 11 in. (149.86 cm); Pain 8/10; 20:04 BP 116 / 69; Pulse 70; Resp 16 S; Pulse Ox 97% on R/A; ha1 19:41 Body Mass Index 24.24 (54.43 kg, 149.86 cm) ha1 ED Course: 18:35 Patient arrived in ED. mr 19:16 Rl Schultz PA is PHCP. chel 19:16 Kasi Alcala MD is Attending Physician. [facility] 19:30 Patient has correct armband on for positive identification. Bed in low position. Call 1 light in reach. Side rails up X 1. 19:41 Cornelia Ware, OSKAR is Primary Nurse. 1 19:58 Triage completed. 1 19:58 Arm band placed on right wrist. ha1 20:25 No provider procedures requiring assistance completed. Patient did not have IV access ha1 during this emergency room visit. Administered Medications: 20:07 Drug: Doxycycline 100 mg Route: PO; ha1 20:30 Follow up: Response: No adverse reaction ha1 20:07 Drug: Cephalexin 500 mg Route: PO; ha1 20:30 Follow up: Response: No adverse reaction 1 Medication: 20:27 VIS not applicable for this client. ha1 Outcome: 20:12 Discharge ordered by . [facility] 20:26 Discharged to home ambulatory, with family. ha1 20:26 Condition: stable 20:26 Discharge instructions given to patient, family, Instructed on discharge instructions, follow up and referral plans. medication usage, Demonstrated understanding of instructions, follow-up care, medications, Prescriptions given X 2. 20:27 Patient left the ED. 1 Signatures: Rl Schultz PA PA jmm DavidsonJacinta mr Cornelia Ware, RN RN 1
[2022-05-30 23:17] VITALS: BP 116/69; TEMP 99.2; O2SAT 97
== END 2022-05-30 20:27 | disposition home or self-care (01) ==
LOC: ER 18:31
DX: L02.416 Cutaneous abscess of left lower limb (principal); F17.210 Nicotine dependence, cigarettes, uncomplicated; Z88.2 Allergy status to sulfonamides
CPT/HCPCS: 99283